=== PATIENT | female | born 2000 | race African-American/Black ===

== ENCOUNTER 2019-07-09 20:05 | Emergency (ER) | payer SELFPAY ==
[~2019-07-09] VITALS: Ht 163.8 cm; Wt 54.4 kg
[2019-07-09 20:11] VITALS: BP 129/80
--- NOTE | 2019-07-09 20:14 | NUR ---
PT TAKEN TO BED 12
--- NOTE | 2019-07-09 20:29 | NUR ---
18 Y/O FEMALE C/O URINARY BURNING/ FREQUENCY X2 DAYS. STATES SHE HAS A HX OF UTI'S. PT ALSO C/O OF SMALL RED BUMP ON LABIA, PAINLESS, THAT APPEARED 1 DAY AGO. PT DENIES ANY BACK PAIN/FLANK PAIN. RESP EVEN AND UNLABORED. LUNG SOUNDS CLEAR IN BILAT LOBES. AAOX4. CAP REFILL <3. NO PMH NKA
[2019-07-09 20:34] VITALS: BP 129/80
--- NOTE | 2019-07-09 20:35 | NUR ---
Patient discharged with v/s stable. Written and verbal after care instructions given and explained. Patient alert, oriented and verbalized understanding of instructions. Ambulatory with steady gait. All questions addressed prior to discharge. ID band removed. Patient advised to follow up with PMD. Rx of PYRIDIUM, MACROBID given. Patient educated on indication of medication including possible reaction and side effects. Opportunity to ask questions provided and answered.
== END 2019-07-09 20:35 | disposition home or self-care (01) ==
LOC: MED 20:05
DX: N39.0 Urinary tract infection, site not specified (principal); F12.90 Cannabis use, unspecified, uncomplicated
CPT/HCPCS: 81002; 81025; 99283

== ENCOUNTER 2019-07-10 22:11 | Emergency (ER) | payer SELFPAY ==
[~2019-07-10] VITALS: Ht 157.5 cm; Wt 54.4 kg
[2019-07-10 22:15] VITALS: BP 114/65
--- NOTE | 2019-07-10 22:25 | NUR ---
18 Y/O F PRESENTS TO ED C/O VAGINAL PAIN AND DYSURIA X 3 DAYS 09/12. PT STATES EXPERIENCING PAIN ON THE VAGINAL ONLY AND DOES NOT RADIATE ANYWHERE. PT STATES BEING IN THE ER YESTERDAY AND WAS PRESCRIBED MACROBID AND PYRIDIUM. PT STATES SHE HAS ALREADY TAKEN ALL PRESCRIBED PYRIDIUM AND THAT MACROBID MADE HER VOMIT. URINE COLOR IS DMITRIY AND HAS PAINFUL URINATION. PT ALSO DENIES VAGINAL DISCHARGE. PMH: DENIES NKA
--- NOTE | 2019-07-10 22:29 | NUR ---
DR. TOVAR AT BEDSIDE EVALUATING PT.
[2019-07-10] MEDS ORDERED: SULFAMETH/TRIMETH DS 800/160MG 1 TAB PO ONE (22:35)
[2019-07-10] MEDS ORDERED: KETOROLAC 60 MG/2 ML VIAL IM ONE (22:35)
[2019-07-10 23:09] VITALS: BP 114/65
[2019-07-13 06:07] LABS: CHLAMYDIA TRACHOMATIS AMP DNA Negative (Negative)
== END 2019-07-10 22:50 | disposition home or self-care (01) ==
LOC: MED 22:16
DX: N39.0 Urinary tract infection, site not specified (principal)
CPT/HCPCS: 36415; 81002; 81025; 96372; 99283; J1885

== ENCOUNTER 2019-07-11 19:33 | Emergency (ER) | payer SELFPAY ==
[~2019-07-11] VITALS: Ht 177.8 cm; Wt 53.6 kg
[2019-07-11 19:38] VITALS: BP 113/88
[2019-07-11 20:02] VITALS: BP 113/88
== END 2019-07-11 20:02 | disposition home or self-care (01) ==
LOC: MED 19:33
DX: B00.9 Herpesviral infection, unspecified (principal)
CPT/HCPCS: 99283